=== PATIENT | male | born 1950 | race Caucasian/White ===

== ENCOUNTER → 2020-11-13 | Outpatient (CLI) | payer BC ==
[~2020-11-13] MED LIST: ALBUTEROL2.5 MG/3 M INH; ALL DAY ALLERGY10 M2 PO; AMLODIPINE BES2.5 MG PO; ASPIRIN CHEWABL81 MG PO; BANATROL PLUS1 EACH PO; CILOSTAZOL100 MG PO; CIPRO500 MG PO; CRESTOR20 MG PO; FLOMAX 0.4 MG0.4 MG PO; FLONASE 0.05% N16 GM; JARDIANCE25 MG PO; NORCO 5-325 TA1 EACH PO; NOVOLOG FL100 UNIT/1 SQ; PLAVIX75 MG PO; POTASSIUM99 M1 PO; PROTONIX 40 MG40 M1 PO; STIOLTO RESPIMAT4 GM INH; SYNTHROID25 MCG PO; TOPROL XL100 MG PO; TOUJEO MAX300 UNIT/1 SQ; TRICOR 145 MG145 MG PO; VENTOLIN HFA 66.7 GM INH; ZYVOX600 MG PO
== END ==
LOC: KOH-I 14:55
DX: M54.50 Low back pain, unspecified (principal); M75.02 Adhesive capsulitis of left shoulder; M47.816 Spondylosis without myelopathy or radiculopathy, lumbar region
CPT/HCPCS: 72100; 73030

== ENCOUNTER → 2020-11-27 | Outpatient (CLI) | payer BC | LOC: KOH-I 13:53 | DX: I73.9 Peripheral vascular disease, unspecified (principal) | CPT/HCPCS: 93925 ==